=== PATIENT | female | born 1940 | race Caucasian/White ===

== ENCOUNTER 2023-01-17 19:51 | Inpatient (IN) | payer OTHER ==
[2023-01-17 20:04] VITALS: BMI 20.1
[2023-01-17] MEDS ORDERED: ACETAMINOPHEN 1000 MG/100 ML BAG IVPB ONE (20:17)
[2023-01-17] MEDS ORDERED: ACETAMINOPHEN INJECTION 100 ML IVPB ONE (21:12)
[2023-01-17 21:23] LABS: BASO % 0.7 % (0-2.0); EOS % 2.2 % (0-4.5); HEMATOCRIT 41.7 % (32.4-45.2); HEMOGLOBIN 14.2 GM/dL (10.7-15.3); LYMPH % 8.8 % (8-40); MCH 30.1 pg (25.7-33.7); MCHC 34.1 g/dl (32.0-36.0); MEAN CELL VOLUME 88.4 fl (80-96); MONO % 3.9 % (3.8-10.2); NEUT % 84.4 % (42.8-82.8); PLATELET COUNT 172 10^3/uL (134-434); RBC 4.72 M/mm3 (3.60-5.2); RDW 13.8 % (11.6-15.6); WHITE BLOOD COUNT 11.3 K/mm3 (4.0-10.0)
[2023-01-17 21:56] LABS: POTASSIUM 4.3 mmol/L (3.5-5.1)
[2023-01-17 21:59] LABS: ALBUMIN 3.7 g/dl (3.4-5.0); BLOOD UREA NITROGEN 20.3 mg/dL (7-18); CALCIUM 9.9 mg/dL (8.5-10.1)
[2023-01-17 22:03] LABS: CREATININE 0.9 mg/dL (0.55-1.3)
[2023-01-17 22:05] LABS: BILIRUBIN,TOTAL 0.6 mg/dL (0.2-1)
[2023-01-18] MEDS ORDERED: INSULIN (NOVOLOG) ASPART 100 UNITS/ML 10ML VIAL SQ ONE (00:14)
[2023-01-18] MEDS ORDERED: DEXTROSE 5%-0.45% SALINE 1,000 ML IV SCH ×2 (01:00→13:47)
[2023-01-18] MEDS ORDERED: LORazepam 2 MG/ML SDV VIAL IM ONE (01:37)
[2023-01-18 03:15] LABS: EPI CELLS 3 /uL (0-25.1); HYALINE CASTS 1 /uL (0-3.1); INR 1.07 (0.83-1.09); PROTHROMBIN TIME (PATIENT) 12.4 SEC (9.7-13.0); URINE APPEARANCE CLOUDY; URINE BACTERIA >9,000 /uL (0-1359); URINE BILIRUBIN NEGATIVE (NEGATIVE); URINE COLOR YELLOW; URINE GLUCOSE (UA) 3+ (NEGATIVE); URINE KETONE 1+ (NEGATIVE); URINE LEUK ESTERASE 2+ (NEGATIVE); URINE NITRITE NEGATIVE (NEGATIVE); URINE PROTEIN 1+ (NEGATIVE); URINE UROBILINOGEN 0.2 mg/dL (0.2-1.0); URINE WBC 786 /uL (0-25.8)
[2023-01-18] MEDS ORDERED: ACETAMINOPHEN 1000 MG/100 ML BAG IVPB PRN ×2 (05:02→13:47)
[2023-01-18 06:45] LABS: BASO % 0.7 % (0-2.0); EOS % 2.9 % (0-4.5); HEMATOCRIT 40.3 % (32.4-45.2); HEMOGLOBIN 13.4 GM/dL (10.7-15.3); LYMPH % 11.8 % (8-40); MCH 29.9 pg (25.7-33.7); MCHC 33.1 g/dl (32.0-36.0); MEAN CELL VOLUME 90.4 fl (80-96); MEAN PLT VOLUME 10.7 fl (7.5-11.1); MONO % 5.3 % (3.8-10.2); NEUT % 79.3 % (42.8-82.8); PLATELET COUNT 151 10^3/uL (134-434); RBC 4.46 M/mm3 (3.60-5.2); RDW 13.8 % (11.6-15.6); WHITE BLOOD COUNT 10.3 K/mm3 (4.0-10.0)
[2023-01-18 07:14] LABS: BLOOD UREA NITROGEN 17.6 mg/dL (7-18); CALCIUM 9.3 mg/dL (8.5-10.1)
[2023-01-18 07:17] LABS: CREATININE 0.6 mg/dL (0.55-1.3)
[2023-01-18 07:52] LABS: URINE RBC 18.8 /uL (0-23.9); YEAST NEGATIVE (NEGATIVE)
[2023-01-18] MEDS ORDERED: amLODIPine BESYLATE 10 MG TABLET (FP) ONE (09:59)
[2023-01-18] MEDS ORDERED: VALSARTAN 80 MG TABLET ONE (09:59)
[2023-01-18] MEDS ORDERED: VALSARTAN 80 MG TABLET PO SCH (10:00)
[2023-01-18] MEDS ORDERED: BRIMONIDINE TARTRATE 0.2% OPHTHALMIC 5 ML BOTTLE OU SCH (10:00)
[2023-01-18] MEDS ORDERED: amLODIPine BESYLATE 10 MG TABLET (FP) PO SCH (10:00)
[2023-01-18] MEDS ORDERED: prednisoLONE ACETATE 1% OPHTH SUSP 5 ML BOTTLE OD SCH (10:00)
[2023-01-18] MEDS ORDERED: INSULIN SLIDING SCALE (NOVOLOG) 1 VIAL SQ SCH (11:00)
[2023-01-18] MEDS ORDERED: PROPOFOL 20 ML ONE (11:51)
[2023-01-18] MEDS ORDERED: ceFAZolin SODIUM 1 GM VIAL ONE (11:51)
[2023-01-18] MEDS ORDERED: ceFAZolin SODIUM 1 GM VIAL IVPB ONE ×2 (12:40)
[2023-01-18] MEDS ORDERED: DEXAMETHASONE SOD PHOSPHATE 4 MG/1 ML VIAL ONE (12:47)
[2023-01-18] MEDS ORDERED: ONDANSETRON 4 MG/2 ML VIAL ONE (12:47)
[2023-01-18] MEDS ORDERED: ONDANSETRON 4 MG/2 ML VIAL IVPUSH PRN ×2 (13:26→13:47)
[2023-01-18] MEDS ORDERED: SODIUM CHLORIDE 1,000 ML IV SCH (13:45)
[2023-01-18] MEDS: INSULIN SLIDING SCALE (NOVOLOG) 1 VIAL SQ SCH ×2 (16:15→22:55)
[2023-01-18] MEDS: SODIUM CHLORIDE 1,000 ML IV SCH ×2 (17:50→18:17)
[2023-01-18] MEDS: prednisoLONE ACETATE 1% OPHTH SUSP 5 ML BOTTLE OD SCH ×3 (18:13→23:00)
[2023-01-18] MEDS ORDERED: CEFAZOLIN SODIUM 2 GM in DEXTROSE 5%-WATER 100 ML IVPB SCH (21:00)
[2023-01-18] MEDS ORDERED: LATANOPROST 0.005% OPHTH SOLN 2.5ML BOTTLE OU SCH (22:00)
[2023-01-18] MEDS: CEFAZOLIN SODIUM 2 GM in DEXTROSE 5%-WATER 100 ML IVPB SCH (22:51)
[2023-01-18] MEDS: BRIMONIDINE TARTRATE 0.2% OPHTHALMIC 5 ML BOTTLE OU SCH (23:00)
[2023-01-18] MEDS: LATANOPROST 0.005% OPHTH SOLN 2.5ML BOTTLE OU SCH (23:01)
[2023-01-19] MEDS: CEFAZOLIN SODIUM 2 GM in DEXTROSE 5%-WATER 100 ML IVPB SCH (05:36)
[2023-01-19] MEDS: INSULIN SLIDING SCALE (NOVOLOG) 1 VIAL SQ SCH ×4 (06:05→21:28)
[2023-01-19 06:47] LABS: HEMATOCRIT 34.7 % (32.4-45.2); HEMOGLOBIN 11.5 GM/dL (10.7-15.3); MCH 30.1 pg (25.7-33.7); MCHC 33.2 g/dl (32.0-36.0); MEAN CELL VOLUME 90.9 fl (80-96); MEAN PLT VOLUME 11.3 fl (7.5-11.1); PLATELET COUNT 168 10^3/uL (134-434); RBC 3.82 M/mm3 (3.60-5.2); RDW 13.5 % (11.6-15.6)
[2023-01-19 07:07] LABS: POTASSIUM 4.6 mmol/L (3.5-5.1)
[2023-01-19 07:08] LABS: CALCIUM 8.8 mg/dL (8.5-10.1)
[2023-01-19 07:09] LABS: BLOOD UREA NITROGEN 25.9 mg/dL (7-18)
[2023-01-19] MEDS ORDERED: ASPIRIN 325 MG TABLET PO SCH (08:00)
[2023-01-19] MEDS: ASPIRIN 325 MG TABLET PO SCH ×2 (09:54→11:16)
[2023-01-19] MEDS: amLODIPine BESYLATE 10 MG TABLET (FP) PO SCH ×2 (09:54→11:17)
[2023-01-19] MEDS: PANTOPRAZOLE 40 MG TABLET PO SCH ×2 (09:54→11:17)
[2023-01-19] MEDS: MULTIVITAMINS (DAILY MVI) TABLET (FP) PO SCH ×2 (09:54→11:17)
[2023-01-19] MEDS: VALSARTAN 80 MG TABLET PO SCH ×2 (09:54→11:17)
[2023-01-19] MEDS: prednisoLONE ACETATE 1% OPHTH SUSP 5 ML BOTTLE OD SCH ×5 (09:56→21:29)
[2023-01-19] MEDS: BRIMONIDINE TARTRATE 0.2% OPHTHALMIC 5 ML BOTTLE OU SCH ×3 (09:56→21:29)
[2023-01-19] MEDS ORDERED: MULTIVITAMINS (DAILY MVI) TABLET (FP) PO SCH (10:00)
[2023-01-19] MEDS ORDERED: PANTOPRAZOLE 40 MG TABLET PO SCH (10:00)
[2023-01-19] MEDS ORDERED: LORazepam 2 MG/ML SDV VIAL IVPUSH ONE (13:45)
[2023-01-19] MEDS: SODIUM CHLORIDE 1,000 ML IV SCH (18:57)
[2023-01-19] MEDS: QUEtiapine FUMARATE 25 MG TABLET PO SCH (21:27)
[2023-01-19] MEDS: LATANOPROST 0.005% OPHTH SOLN 2.5ML BOTTLE OU SCH (21:28)
[2023-01-20] MEDS ORDERED: ACETAMINOPHEN 1000 MG/100 ML BAG IVPB ONE (05:57)
[2023-01-20] MEDS: INSULIN SLIDING SCALE (NOVOLOG) 1 VIAL SQ SCH ×4 (06:24→21:32)
[2023-01-20 07:35] LABS: HEMATOCRIT 30.1 % (32.4-45.2); MCH 30.2 pg (25.7-33.7); MCHC 33.3 g/dl (32.0-36.0); MEAN CELL VOLUME 90.7 fl (80-96); PLATELET COUNT 157 10^3/uL (134-434); RBC 3.32 M/mm3 (3.60-5.2); RDW 13.7 % (11.6-15.6); WHITE BLOOD COUNT 8.6 K/mm3 (4.0-10.0)
[2023-01-20] MEDS: ASPIRIN 325 MG TABLET PO SCH (08:10)
[2023-01-20] MEDS: MULTIVITAMINS (DAILY MVI) TABLET (FP) PO SCH ×2 (10:09→10:22)
[2023-01-20] MEDS: amLODIPine BESYLATE 10 MG TABLET (FP) PO SCH ×2 (10:09→10:21)
[2023-01-20] MEDS: VALSARTAN 80 MG TABLET PO SCH ×2 (10:09→10:20)
[2023-01-20] MEDS: PANTOPRAZOLE 40 MG TABLET PO SCH ×2 (10:09→10:22)
[2023-01-20] MEDS: BRIMONIDINE TARTRATE 0.2% OPHTHALMIC 5 ML BOTTLE OU SCH ×2 (10:10→21:31)
[2023-01-20] MEDS: prednisoLONE ACETATE 1% OPHTH SUSP 5 ML BOTTLE OD SCH ×4 (10:11→21:32)
[2023-01-20] MEDS ORDERED: ACETAMINOPHEN 325 MG TABLET (FP) PO ONE (16:15)
[2023-01-20] MEDS ORDERED: ACETAMINOPHEN 325 MG TABLET (FP) PO PRN (17:16)
[2023-01-20] MEDS: SODIUM CHLORIDE 1,000 ML IV SCH (17:17)
[2023-01-20] MEDS: QUEtiapine FUMARATE 25 MG TABLET PO SCH (21:31)
[2023-01-20] MEDS: LATANOPROST 0.005% OPHTH SOLN 2.5ML BOTTLE OU SCH (21:31)
[2023-01-20] MEDS: HEPARIN NA (PORCINE) 5,000 UNITS/ML 1ML VIAL SQ SCH (21:31)
[2023-01-21] MEDS: INSULIN SLIDING SCALE (NOVOLOG) 1 VIAL SQ SCH ×3 (06:38→16:48)
[2023-01-21 07:07] VITALS: RESP 18
[2023-01-21] MEDS: ASPIRIN 325 MG TABLET PO SCH (08:14)
[2023-01-21] MEDS: VALSARTAN 80 MG TABLET PO SCH (09:34)
[2023-01-21] MEDS: PANTOPRAZOLE 40 MG TABLET PO SCH (09:34)
[2023-01-21] MEDS: MULTIVITAMINS (DAILY MVI) TABLET (FP) PO SCH (09:34)
[2023-01-21] MEDS: HEPARIN NA (PORCINE) 5,000 UNITS/ML 1ML VIAL SQ SCH (09:35)
[2023-01-21] MEDS: amLODIPine BESYLATE 10 MG TABLET (FP) PO SCH (09:35)
[2023-01-21] MEDS: prednisoLONE ACETATE 1% OPHTH SUSP 5 ML BOTTLE OD SCH ×3 (09:36→17:04)
[2023-01-21] MEDS: BRIMONIDINE TARTRATE 0.2% OPHTHALMIC 5 ML BOTTLE OU SCH (09:36)
[2023-01-21 17:47] VITALS: BP 122/59; PULSE 94; TEMP 98.9
== END 2023-01-21 18:04 | DRG 956 ==
LOC: JER 19:51 → JERBED 20:36 → J4S 01-18 17:55
PROVIDERS: ADMIT Internal Medicine; ATTEND Family Medicine
PROC: 0SRR0JA Replacement of Right Hip Joint, Femoral Surface with Synthetic Substitute, Uncemented, Open Approach (ICD-10-PCS; principal; 2023-01-18 12:00)
DX: S72.001A Fracture of unspecified part of neck of right femur, initial encounter for closed fracture (principal); S32.10XA Unspecified fracture of sacrum, initial encounter for closed fracture; N39.0 Urinary tract infection, site not specified; I10 Essential (primary) hypertension; F03.90 Unspecified dementia, unspecified severity, without behavioral disturbance, psychotic disturbance, mood disturbance, and anxiety; E11.9 Type 2 diabetes mellitus without complications; I44.0 Atrioventricular block, first degree; I45.10 Unspecified right bundle-branch block; W19.XXXA Unspecified fall, initial encounter; Y93.89 Activity, other specified; Y92.129 Unspecified place in nursing home as the place of occurrence of the external cause; Y99.8 Other external cause status; I25.10 Atherosclerotic heart disease of native coronary artery without angina pectoris; K21.9 Gastro-esophageal reflux disease without esophagitis; H40.9 Unspecified glaucoma; Z79.4 Long term (current) use of insulin; R55 Syncope and collapse; E11.65 Type 2 diabetes mellitus with hyperglycemia; Z88.0 Allergy status to penicillin
CPT/HCPCS: 36415; 70450-TC; 71045-TC-FY; 72125-TC; 72170-TC-FY; 72192-TC; 73502-TC-RT-FY; 73552-TC-RT-FY; 73590-TC-RT-FY; 80048; 80053; 81003; 82962; 83036; 83735; 84484; 85025; 85027; 85610; 86850; 86900; 86901; 87086; 87186; 88305-TC; 88311-TC; 93005; 93010; 94760; 97116-GP; 97161-GP; 99285-25; C1776; J1644

== ENCOUNTER 2024-03-20 17:55 | Observation (INO) | payer OTHER ==
[2024-03-20 18:57] VITALS: BMI 21.9
[2024-03-20 22:15] LABS: POTASSIUM 4.1 mmol/L (3.5-5.1)
[2024-03-20 22:16] LABS: BLOOD UREA NITROGEN 5.3 mg/dL (7-18)
[2024-03-20] MEDS ORDERED: ACETAMINOPHEN INJECTION 100 ML ONE (22:16)
[2024-03-20 22:17] LABS: ALBUMIN 2.7 g/dl (3.4-5.0)
[2024-03-20 22:19] LABS: CREATININE 0.4 mg/dL (0.55-1.3)
[2024-03-20 22:21] LABS: BILIRUBIN,TOTAL 0.1 mg/dL (0.2-1); TOT PROT 6.7 g/dl (6.4-8.2)
[2024-03-20 22:51] LABS: BASO % 0.9 % (0-2.0); EOS % 5.1 % (0-4.5); HEMATOCRIT 37.4 % (32.4-45.2); HEMOGLOBIN 12.4 GM/dL (10.7-15.3); LYMPH % 24.4 % (8-40); MCH 29.1 pg (25.7-33.7); MCHC 33.1 g/dl (32.0-36.0); MEAN CELL VOLUME 87.9 fl (80-96); MEAN PLT VOLUME 8.4 fl (7.5-11.1); MONO % 7.3 % (3.8-10.2); NEUT % 62.3 % (42.8-82.8); PLATELET COUNT 310 10^3/uL (134-434); RBC 4.26 M/mm3 (3.60-5.2); RDW 14.5 % (11.6-15.6); WHITE BLOOD COUNT 8.3 K/mm3 (4.0-10.0)
[2024-03-20] MEDS: ACETAMINOPHEN 1000 MG/100 ML BAG IVPB ONE (22:51)
[2024-03-21 01:59] LABS: EPI CELLS 13 /uL (0-25.1); HYALINE CASTS 1 /uL (0-3.1); PH,URINE 6.5 (5.0-8.0); URINE APPEARANCE CLEAR; URINE BACTERIA 26 /uL (0-1359); URINE BILIRUBIN NEGATIVE (NEGATIVE); URINE COLOR YELLOW; URINE GLUCOSE (UA) NEGATIVE (NEGATIVE); URINE KETONE NEGATIVE (NEGATIVE); URINE LEUK ESTERASE 2+ (NEGATIVE); URINE NITRITE NEGATIVE (NEGATIVE); URINE PROTEIN NEGATIVE (NEGATIVE); URINE RBC 18 /uL (0-23.9); URINE UROBILINOGEN 0.2 mg/dL (0.2-1.0); URINE WBC 19 /uL (0-25.8)
[2024-03-21] MEDS: INSULIN (LEVEMIR) 100 UNITS/ML UNITS SQ SCH (04:54)
[2024-03-21] MEDS: MEROPENEM 1 GM in DEXTROSE 5%-WATER 100 ML IVPB SCH (06:02)
[2024-03-21 07:21] LABS: HEMOGLOBIN 12.1 GM/dL (10.7-15.3); MCH 28.9 pg (25.7-33.7); MCHC 32.7 g/dl (32.0-36.0); MEAN CELL VOLUME 88.5 fl (80-96); MEAN PLT VOLUME 9.2 fl (7.5-11.1); PLATELET COUNT 359 10^3/uL (134-434); RBC 4.18 M/mm3 (3.60-5.2); RDW 14.4 % (11.6-15.6); WHITE BLOOD COUNT 8.2 K/mm3 (4.0-10.0)
[2024-03-21 07:40] LABS: CHLORIDE 101 mmol/L (98-107); POTASSIUM 4.4 mmol/L (3.5-5.1); SODIUM 134 mmol/L (136-145)
[2024-03-21 07:44] LABS: CALCIUM 9.5 mg/dL (8.5-10.1)
[2024-03-21 07:45] LABS: ALBUMIN 2.6 g/dl (3.4-5.0); ANION GAP 6 mmol/L (4-13); BLOOD UREA NITROGEN 5.4 mg/dL (7-18); CO2 28 mmol/L (21-32); GLUCOSE,RANDOM 157 mg/dL (74-106)
[2024-03-21 07:47] LABS: BILIRUBIN,TOTAL 0.3 mg/dL (0.2-1)
[2024-03-21 07:48] LABS: CREATININE 0.4 mg/dL (0.55-1.3); SGOT/AST 11 U/L (15-37); SGPT/ALT < 6 U/L (13-61)
[2024-03-21 07:49] LABS: TOT PROT 6.8 g/dl (6.4-8.2)
[2024-03-21 07:50] LABS: PHOSPHOROUS 3.3 mg/dL (2.5-4.9)
[2024-03-21 07:51] LABS: ALK PHOS 190 U/L (45-117)
[2024-03-21] MEDS: CEFTRIAXONE 1 GM in DEXTROSE 5%-WATER - 50 ML IVPB SCH (10:51)
[2024-03-21] MEDS ORDERED: MAG HYDROX/AL HYDROX/SIMETH 30 ML UNIT-DOSE CUP PO PRN (11:16)
[2024-03-21] MEDS ORDERED: ASPIRIN 81 MG CHEWABLE TABLETS ONE (12:25)
[2024-03-21] MEDS ORDERED: MEROPENEM 1 GM in DEXTROSE 5%-WATER 100 ML IVPB SCH ×2 (13:15→15:15)
[2024-03-21] MEDS: amLODIPine BESYLATE 10 MG TABLET (FP) PO SCH (13:16)
[2024-03-21] MEDS: VALSARTAN 80 MG TABLET PO SCH (13:16)
[2024-03-21] MEDS: ASPIRIN COATED 81 MG TABLET.EC PO SCH (13:27)
[2024-03-21] MEDS ORDERED: INSULIN ASPART SLIDING SCALE (NOVOLOG) 1 VIAL SQ ONE (16:09)
[2024-03-21] MEDS: prednisoLONE ACETATE 1% OPHTH SUSP 5 ML BOTTLE OD SCH (16:10)
[2024-03-21] MEDS: BRIMONIDINE TARTRATE 0.2% OPHTHALMIC 5 ML BOTTLE OU SCH (16:11)
[2024-03-21] MEDS ORDERED: MEROPENEM 1 GM VIAL (RESTRICTED TO ID) IVPB ONE (18:56)
[2024-03-21] MEDS ORDERED: POLYETHYLENE GLYCOL (HEALTHYLAX) 3350 17 GM PACKET ONE (21:40)
[2024-03-21] MEDS ORDERED: SENNOSIDES 8.6MG TABLET (FP) PO ONE (21:40)
[2024-03-21] MEDS: POLYETHYLENE GLYCOL (HEALTHYLAX) 3350 17 GM PACKET PO SCH (21:58)
[2024-03-21] MEDS: LATANOPROST 0.005% OPHTH SOLN 2.5ML BOTTLE OU SCH (21:58)
[2024-03-21] MEDS: SENNOSIDES 8.8 MG/5 ML SYRUP PO SCH (21:58)
[2024-03-21] MEDS: DORZOLAMIDE 2% HCL OPHTHALMIC SOLUTION 10 ML BOTTLE OU SCH (21:58)
[2024-03-21] MEDS ORDERED: SENNOSIDES 8.8 MG/5 ML SYRUP PO SCH (22:00)
[2024-03-22] MEDS ORDERED: MEROPENEM 1 GM VIAL (RESTRICTED TO ID) IVPB ONE ×3 (02:11→18:09)
[2024-03-22] MEDS ORDERED: INSULIN (LEVEMIR) 100 UNITS/ML UNITS SQ ONE ×2 (08:23→17:36)
[2024-03-22] MEDS ORDERED: POLYETHYLENE GLYCOL (HEALTHYLAX) 3350 17 GM PACKET ONE ×2 (08:50→22:00)
[2024-03-22] MEDS ORDERED: PANTOPRAZOLE 20 MG TABLET PO ONE (08:50)
[2024-03-22] MEDS ORDERED: ASPIRIN COATED 81 MG TABLET.EC ONE (08:50)
[2024-03-22] MEDS ORDERED: VALSARTAN 80 MG TABLET ONE (08:51)
[2024-03-22] MEDS ORDERED: amLODIPine BESYLATE 10 MG TABLET (FP) ONE (08:51)
[2024-03-22] MEDS ORDERED: SENNOSIDES 8.6MG TABLET (FP) PO ONE ×2 (08:51→22:00)
[2024-03-22] MEDS ORDERED: ENOXAPARIN NA (PORCINE) 40 MG/0.4 ML DISP.SYRIN SQ ONE (08:51)
[2024-03-22] MEDS: SENNOSIDES 8.6MG TABLET (FP) PO SCH (09:20)
[2024-03-22] MEDS: ENOXAPARIN NA (PORCINE) 40 MG/0.4 ML DISP.SYRIN SQ SCH (09:20)
[2024-03-22] MEDS: PANTOPRAZOLE 20 MG TABLET PO SCH (09:20)
[2024-03-22] MEDS: INSULIN ASPART SLIDING SCALE (NOVOLOG) 1 VIAL SQ SCH (17:34)
[2024-03-22] MEDS ORDERED: INSULIN ASPART SLIDING SCALE (NOVOLOG) 1 VIAL SQ ONE (17:36)
[2024-03-22] MEDS ORDERED: TAMSULOSIN HCL 0.4 MG CAP ONE (22:01)
[2024-03-22] MEDS: TAMSULOSIN HCL 0.4 MG CAP PO SCH (22:08)
[2024-03-23] MEDS ORDERED: MEROPENEM 1 GM VIAL (RESTRICTED TO ID) IVPB ONE (02:52)
[2024-03-23 10:37] LABS: BASO % 1.3 % (0-2.0); EOS % 2.7 % (0-4.5); HEMATOCRIT 36.6 % (32.4-45.2); LYMPH % 23.1 % (8-40); MCH 29.3 pg (25.7-33.7); MCHC 32.9 g/dl (32.0-36.0); MEAN PLT VOLUME 8.2 fl (7.5-11.1); MONO % 6.5 % (3.8-10.2); NEUT % 66.4 % (42.8-82.8); PLATELET COUNT 485 10^3/uL (134-434); RBC 4.11 M/mm3 (3.60-5.2); RDW 14.2 % (11.6-15.6); WHITE BLOOD COUNT 7.6 K/mm3 (4.0-10.0)
[2024-03-23 10:50] LABS: POTASSIUM 4.7 mmol/L (3.5-5.1)
[2024-03-23 10:52] LABS: CALCIUM 9.7 mg/dL (8.5-10.1)
[2024-03-23 10:53] LABS: ALBUMIN 2.6 g/dl (3.4-5.0); MAGNESIUM 2.2 mg/dL (1.8-2.4)
[2024-03-23 10:54] LABS: BLOOD UREA NITROGEN 11.7 mg/dL (7-18)
[2024-03-23 10:56] LABS: CREATININE 0.5 mg/dL (0.55-1.3)
[2024-03-23 10:58] LABS: BILIRUBIN,TOTAL 0.3 mg/dL (0.2-1); TOT PROT 6.4 g/dl (6.4-8.2)
[2024-03-24 10:55] LABS: BASO % 1.5 % (0-2.0); EOS % 4.3 % (0-4.5); HEMATOCRIT 35.2 % (32.4-45.2); HEMOGLOBIN 11.8 GM/dL (10.7-15.3); MCH 29.4 pg (25.7-33.7); MCHC 33.6 g/dl (32.0-36.0); MEAN CELL VOLUME 87.5 fl (80-96); MEAN PLT VOLUME 7.8 fl (7.5-11.1); MONO % 7.7 % (3.8-10.2); NEUT % 66.5 % (42.8-82.8); PLATELET COUNT 522 10^3/uL (134-434); RBC 4.02 M/mm3 (3.60-5.2); RDW 14.8 % (11.6-15.6); WHITE BLOOD COUNT 9.3 K/mm3 (4.0-10.0)
[2024-03-24 11:17] LABS: POTASSIUM 4.7 mmol/L (3.5-5.1)
[2024-03-24 11:18] LABS: CALCIUM 9.6 mg/dL (8.5-10.1)
[2024-03-24 11:22] LABS: ALBUMIN 2.5 g/dl (3.4-5.0); MAGNESIUM 2.3 mg/dL (1.8-2.4)
[2024-03-24 11:24] LABS: BLOOD UREA NITROGEN 19.6 mg/dL (7-18)
[2024-03-24 11:25] LABS: CREATININE 0.7 mg/dL (0.55-1.3)
[2024-03-24 11:27] LABS: TOT PROT 6.3 g/dl (6.4-8.2)
[2024-03-24 11:29] LABS: BILIRUBIN,TOTAL 0.3 mg/dL (0.2-1)
[2024-03-24] MEDS: POLYETHYLENE GLYCOL (HEALTHYLAX) 3350 17 GM PACKET PO SCH (13:28)
[2024-03-25 09:52] LABS: BASO % 1.2 % (0-2.0); EOS % 3.1 % (0-4.5); HEMATOCRIT 37.4 % (32.4-45.2); HEMOGLOBIN 12.5 GM/dL (10.7-15.3); LYMPH % 20.7 % (8-40); MCH 29.4 pg (25.7-33.7); MCHC 33.5 g/dl (32.0-36.0); MEAN CELL VOLUME 87.7 fl (80-96); MEAN PLT VOLUME 8.1 fl (7.5-11.1); MONO % 7.4 % (3.8-10.2); NEUT % 67.6 % (42.8-82.8); PLATELET COUNT 521 10^3/uL (134-434); RBC 4.26 M/mm3 (3.60-5.2); RDW 14.5 % (11.6-15.6); WHITE BLOOD COUNT 9.4 K/mm3 (4.0-10.0)
[2024-03-25 10:29] LABS: POTASSIUM 5.1 mmol/L (3.5-5.1)
[2024-03-25 10:34] LABS: CALCIUM 9.9 mg/dL (8.5-10.1)
[2024-03-25 10:35] LABS: ALBUMIN 2.7 g/dl (3.4-5.0); BLOOD UREA NITROGEN 22.1 mg/dL (7-18); MAGNESIUM 2.4 mg/dL (1.8-2.4)
[2024-03-25 10:39] LABS: CREATININE 0.6 mg/dL (0.55-1.3)
[2024-03-25 10:40] LABS: BILIRUBIN,TOTAL 0.2 mg/dL (0.2-1); TOT PROT 6.7 g/dl (6.4-8.2)
[2024-03-25] MEDS: INSULIN (LEVEMIR) 100 UNITS/ML UNITS SQ ONE (17:32)
[2024-03-25 20:53] VITALS: RESP 18
[2024-03-26 06:30] VITALS: BP 145/73; PULSE 79; TEMP 97.7
[2024-03-26 15:11] LABS: TOTAL PROTEIN, URINE 104.6 mg/dL (Not Estab.)
== END 2024-03-26 10:20 ==
LOC: JER 17:55 → JERBED 03-21 02:01 → J6W 03-23 04:01
PROVIDERS: ADMIT Internal Medicine
PROC: 3E033NZ Introduction of Analgesics, Hypnotics, Sedatives into Peripheral Vein, Percutaneous Approach (ICD-10-PCS; principal; 2024-03-21)
PROC: 3E03329 Introduction of Other Anti-infective into Peripheral Vein, Percutaneous Approach (ICD-10-PCS; 2024-03-21)
PROC: 3E023GC Introduction of Other Therapeutic Substance into Muscle, Percutaneous Approach (ICD-10-PCS; 2024-03-21)
PROC: 3E013VG Introduction of Insulin into Subcutaneous Tissue, Percutaneous Approach (ICD-10-PCS; 2024-03-21)
PROC: 0T9B70Z Drainage of Bladder with Drainage Device, Via Natural or Artificial Opening (ICD-10-PCS; 2024-03-21)
DX: K52.89 Other specified noninfective gastroenteritis and colitis (principal); K59.09 Other constipation; N39.0 Urinary tract infection, site not specified; R33.9 Retention of urine, unspecified; F32.A Depression, unspecified; I10 Essential (primary) hypertension; E78.5 Hyperlipidemia, unspecified; J90 Pleural effusion, not elsewhere classified; I25.10 Atherosclerotic heart disease of native coronary artery without angina pectoris; S72.009A Fracture of unspecified part of neck of unspecified femur, initial encounter for closed fracture; X58.XXXA Exposure to other specified factors, initial encounter; R10.9 Unspecified abdominal pain; E11.9 Type 2 diabetes mellitus without complications; Z87.440 Personal history of urinary (tract) infections; Z29.89 Encounter for other specified prophylactic measures; F39 Unspecified mood [affective] disorder; G89.29 Other chronic pain; Z88.0 Allergy status to penicillin
CPT/HCPCS: 36415; 51702; 71045-TC-FY; 74177-TC; 80053; 81003; 82962; 83690; 83735; 84100; 84155; 84156; 84157; 84165; 84484; 85025; 85027; 87086; 87635; 93005; 93010; 94761; 96365; 96372; 96375; 97116-GP; 97161-GP; 99285-25; G0378; J0131; Q9967

== ENCOUNTER 2024-04-25 16:22 | Inpatient (IN) | payer OTHER ==
[2024-04-25 16:54] VITALS: BMI 19.2
[2024-04-25 19:53] LABS: HEMATOCRIT 35.3 % (32.4-45.2); HEMOGLOBIN 11.6 GM/dL (10.7-15.3); LYMPH % 12.8 % (8-40); MCH 29.2 pg (25.7-33.7); MCHC 32.9 g/dl (32.0-36.0); MEAN CELL VOLUME 88.8 fl (80-96); MEAN PLT VOLUME 9.1 fl (7.5-11.1); MONO % 7.1 % (3.8-10.2); NEUT % 78.1 % (42.8-82.8); PLATELET COUNT 400 10^3/uL (134-434); RBC 3.97 M/mm3 (3.60-5.2); RDW 15.8 % (11.6-15.6); WHITE BLOOD COUNT 11.6 K/mm3 (4.0-10.0)
[2024-04-25 20:08] LABS: EPI CELLS >36 /uL (0-25.1); HYALINE CASTS 21 /uL (0-3.1); URINE APPEARANCE TURBID; URINE BILIRUBIN NEGATIVE (NEGATIVE); URINE COLOR YELLOW; URINE GLUCOSE (UA) 2+ (NEGATIVE); URINE KETONE NEGATIVE (NEGATIVE); URINE LEUK ESTERASE TRACE (NEGATIVE); URINE NITRITE NEGATIVE (NEGATIVE); URINE PROTEIN 1+ (NEGATIVE); URINE UROBILINOGEN 0.2 mg/dL (0.2-1.0); URINE WBC 887 /uL (0-25.8)
[2024-04-25 20:13] LABS: POTASSIUM 4.6 mmol/L (3.5-5.1)
[2024-04-25 20:15] LABS: CALCIUM 9.1 mg/dL (8.5-10.1)
[2024-04-25 20:16] LABS: ALBUMIN 2.5 g/dl (3.4-5.0); BLOOD UREA NITROGEN 28.4 mg/dL (7-18)
[2024-04-25 20:19] LABS: CREATININE 0.8 mg/dL (0.55-1.3)
[2024-04-25 20:20] LABS: BILIRUBIN,TOTAL 0.3 mg/dL (0.2-1); TOT PROT 7.3 g/dl (6.4-8.2)
[2024-04-25 20:36] LABS: URINE BACTERIA >9000 /uL (0-1359); URINE RBC 5 /uL (0-23.9)
[2024-04-25] MEDS ORDERED: CEFTRIAXONE 1 GM/50 ML BAG ONE (20:52)
[2024-04-25] MEDS: CEFTRIAXONE 1 GM in DEXTROSE 5%-WATER - 100 ML IVPB ONE (21:00)
[2024-04-26] MEDS ORDERED: MAGNESIUM CITRATE 300 ML BOTTLE PO PRN (01:33)
[2024-04-26] MEDS ORDERED: MAG HYDROX/AL HYDROX/SIMETH 30 ML UNIT-DOSE CUP PO PRN (01:44)
[2024-04-26] MEDS: MINERAL OIL ENEMA 133 ML ENEMA RC ONE ×3 (03:03→11:59)
[2024-04-26] MEDS ORDERED: MAGNESIUM CITRATE 300 ML BOTTLE ONE (03:33)
[2024-04-26] MEDS: MAGNESIUM CITRATE 300 ML BOTTLE PO ONE (03:46)
[2024-04-26] MEDS ORDERED: TAMSULOSIN HCL 0.4 MG CAP PO SCH (08:30)
[2024-04-26] MEDS ORDERED: POLYETHYLENE GLYCOL (HEALTHYLAX) 3350 17 GM PACKET PO SCH (10:00)
[2024-04-26 10:25] LABS: HEMATOCRIT 32.2 % (32.4-45.2); HEMOGLOBIN 10.7 GM/dL (10.7-15.3); MCH 29.4 pg (25.7-33.7); MCHC 33.2 g/dl (32.0-36.0); MEAN CELL VOLUME 88.8 fl (80-96); MEAN PLT VOLUME 9.2 fl (7.5-11.1); PLATELET COUNT 356 10^3/uL (134-434); RBC 3.62 M/mm3 (3.60-5.2); RDW 15.6 % (11.6-15.6); WHITE BLOOD COUNT 11.7 K/mm3 (4.0-10.0)
[2024-04-26 11:32] LABS: POTASSIUM 3.8 mmol/L (3.5-5.1)
[2024-04-26 11:35] LABS: ALBUMIN 2.3 g/dl (3.4-5.0); BLOOD UREA NITROGEN 29.2 mg/dL (7-18); CALCIUM 8.1 mg/dL (8.5-10.1); MAGNESIUM 2.1 mg/dL (1.8-2.4)
[2024-04-26 11:38] LABS: CREATININE 0.8 mg/dL (0.55-1.3); PHOSPHOROUS 5.2 mg/dL (2.5-4.9)
[2024-04-26 11:40] LABS: BILIRUBIN,TOTAL 0.4 mg/dL (0.2-1); TOT PROT 6.6 g/dl (6.4-8.2)
[2024-04-26 11:43] LABS: N-TERMINAL BNP 2805.1 pg/ml (5-450)
[2024-04-26] MEDS: INSULIN ASPART SLIDING SCALE (NOVOLOG) 1 VIAL SQ SCH (11:55)
[2024-04-26] MEDS: PANTOPRAZOLE 20 MG TABLET PO SCH (11:58)
[2024-04-26] MEDS: INSULIN (LEVEMIR) 100 UNITS/ML UNITS SQ SCH (11:58)
[2024-04-26] MEDS: VALSARTAN 80 MG TABLET PO SCH (12:00)
[2024-04-26] MEDS: BRIMONIDINE TARTRATE 0.2% OPHTHALMIC 5 ML BOTTLE OU SCH (12:00)
[2024-04-26] MEDS: ENOXAPARIN NA (PORCINE) 40 MG/0.4 ML DISP.SYRIN SQ SCH (12:01)
[2024-04-26] MEDS: ASPIRIN COATED 81 MG TABLET.EC PO SCH (12:01)
[2024-04-26] MEDS: amLODIPine BESYLATE 10 MG TABLET (FP) PO SCH (14:24)
[2024-04-26] MEDS: POLYETHYLENE GLYCOL (HEALTHYLAX) 3350 17 GM PACKET PO SCH (14:24)
[2024-04-26] MEDS: prednisoLONE ACETATE 1% OPHTH SUSP 5 ML BOTTLE OD SCH (17:00)
[2024-04-26] MEDS: DORZOLAMIDE 2% HCL OPHTHALMIC SOLUTION 10 ML BOTTLE OU SCH (17:01)
[2024-04-26] MEDS: DEXTROSE 5%-0.45% SALINE 1,000 ML IV SCH (19:50)
[2024-04-26] MEDS: CEFTRIAXONE 1 G/50 ML PREMIX 50 ML IVPB SCH (23:40)
[2024-04-26] MEDS: LATANOPROST 0.005% OPHTH SOLN 2.5ML BOTTLE OU SCH (23:45)
[2024-04-27] MEDS: SENNOSIDES 8.6MG TABLET (FP) PO SCH (03:44)
[2024-04-27] MEDS ORDERED: INSULIN ASPART SLIDING SCALE (NOVOLOG) 1 VIAL SQ ONE (07:51)
[2024-04-27 09:17] LABS: BASO % 1.1 % (0-2.0); EOS % 1.5 % (0-4.5); HEMATOCRIT 30.7 % (32.4-45.2); HEMOGLOBIN 10.2 GM/dL (10.7-15.3); LYMPH % 18.3 % (8-40); MCH 29.6 pg (25.7-33.7); MCHC 33.3 g/dl (32.0-36.0); MEAN CELL VOLUME 88.8 fl (80-96); MEAN PLT VOLUME 8.7 fl (7.5-11.1); MONO % 8.5 % (3.8-10.2); NEUT % 70.6 % (42.8-82.8); PLATELET COUNT 314 10^3/uL (134-434); RBC 3.46 M/mm3 (3.60-5.2); RDW 15.3 % (11.6-15.6); WHITE BLOOD COUNT 10.4 K/mm3 (4.0-10.0)
[2024-04-27 09:20] LABS: POTASSIUM 3.2 mmol/L (3.5-5.1)
[2024-04-27 09:27] LABS: ALBUMIN 2.2 g/dl (3.4-5.0); BLOOD UREA NITROGEN 41.2 mg/dL (7-18); CALCIUM 8.2 mg/dL (8.5-10.1); MAGNESIUM 2.3 mg/dL (1.8-2.4)
[2024-04-27 09:29] LABS: BILIRUBIN,TOTAL 0.2 mg/dL (0.2-1); TOT PROT 6.2 g/dl (6.4-8.2)
[2024-04-27 09:31] LABS: CREATININE 1.2 mg/dL (0.55-1.3)
[2024-04-27] MEDS: KCL 10 MEQ IVPB 10 MEQ/100 ML INFUS.BAG IVPB SCH (14:25)
[2024-04-27] MEDS: POTASSIUM CHLORIDE 10 MEQ in DEXTROSE 5%-WATER - 1,000 ML IV SCH ×2 (15:29→15:37)
[2024-04-27] MEDS: DEXTROSE 5%-WATER - 1,000 ML with POTASSIUM CHLORIDE 10 MEQ IV SCH (15:37)
[2024-04-27] MEDS: BISACODYL 10 MG SUPP.RECT PR PRN (15:48)
[2024-04-27 17:09] LABS: FREE KAPPA,SERUM 108.9 mg/L (3.3-19.4)
[2024-04-27] MEDS: DEXTROSE 5%-0.45% SALINE 1,000 ML IV SCH (20:42)
[2024-04-28] MEDS: ACETAMINOPHEN 1000 MG/100 ML BAG IVPB PRN (01:53)
[2024-04-28 08:22] LABS: EOS % 3.7 % (0-4.5); HEMOGLOBIN 10.8 GM/dL (10.7-15.3); MCH 28.8 pg (25.7-33.7); MCHC 32.6 g/dl (32.0-36.0); MEAN CELL VOLUME 88.5 fl (80-96); MEAN PLT VOLUME 8.8 fl (7.5-11.1); MONO % 7.9 % (3.8-10.2); NEUT % 70.4 % (42.8-82.8); PLATELET COUNT 304 10^3/uL (134-434); RBC 3.73 M/mm3 (3.60-5.2); RDW 15.3 % (11.6-15.6); WHITE BLOOD COUNT 9.8 K/mm3 (4.0-10.0)
[2024-04-28 08:34] LABS: POTASSIUM 3.6 mmol/L (3.5-5.1)
[2024-04-28 08:37] LABS: ALBUMIN 2.2 g/dl (3.4-5.0); BLOOD UREA NITROGEN 30.9 mg/dL (7-18); CALCIUM 8.6 mg/dL (8.5-10.1); MAGNESIUM 2.1 mg/dL (1.8-2.4)
[2024-04-28 08:42] LABS: BILIRUBIN,TOTAL 0.4 mg/dL (0.2-1); CREATININE 0.9 mg/dL (0.55-1.3); TOT PROT 6.2 g/dl (6.4-8.2)
[2024-04-28] MEDS: amLODIPine BESYLATE 5 MG TABLET (FP) PO SCH (09:48)
[2024-04-28] MEDS: LORazepam 2 MG/ML SDV VIAL IVPUSH ONE (13:23)
[2024-04-28] MEDS ORDERED: ACETAMINOPHEN 1000 MG/100 ML BAG IVPB PRN (13:26)
[2024-04-29 09:48] LABS: EOS % 4.5 % (0-4.5); HEMATOCRIT 33.3 % (32.4-45.2); HEMOGLOBIN 11.1 GM/dL (10.7-15.3); MCH 29.1 pg (25.7-33.7); MCHC 33.5 g/dl (32.0-36.0); MEAN CELL VOLUME 87.1 fl (80-96); MEAN PLT VOLUME 9.1 fl (7.5-11.1); NEUT % 71.5 % (42.8-82.8); PLATELET COUNT 283 10^3/uL (134-434); RBC 3.82 M/mm3 (3.60-5.2); RDW 15.6 % (11.6-15.6)
[2024-04-29 10:00] LABS: POTASSIUM 3.4 mmol/L (3.5-5.1)
[2024-04-29 10:05] LABS: CALCIUM 8.6 mg/dL (8.5-10.1)
[2024-04-29 10:06] LABS: ALBUMIN 2.2 g/dl (3.4-5.0); BLOOD UREA NITROGEN 22.9 mg/dL (7-18)
[2024-04-29 10:10] LABS: BILIRUBIN,TOTAL 0.3 mg/dL (0.2-1); CREATININE 0.8 mg/dL (0.55-1.3)
[2024-04-29] MEDS: KCL 10 MEQ IVPB 10 MEQ/100 ML INFUS.BAG IVPB SCH ×2 (11:40→15:21)
[2024-04-29] MEDS ORDERED: LORazepam 2 MG/ML SDV VIAL IVPUSH PRN (16:28)
[2024-04-29 18:08] LABS: IG A QN SERUM. 1013 mg/dL (64-422)
[2024-04-29] MEDS: MIRTAZAPINE 15 MG TABLET (FP) PO SCH (22:08)
[2024-04-30 09:53] LABS: BASO % 0.9 % (0-2.0); EOS % 2.5 % (0-4.5); HEMOGLOBIN 11.6 GM/dL (10.7-15.3); MCH 29.2 pg (25.7-33.7); MCHC 33.2 g/dl (32.0-36.0); MEAN CELL VOLUME 87.9 fl (80-96); MEAN PLT VOLUME 9.1 fl (7.5-11.1); NEUT % 75.6 % (42.8-82.8); PLATELET COUNT 258 10^3/uL (134-434); RBC 3.98 M/mm3 (3.60-5.2); RDW 15.4 % (11.6-15.6); WHITE BLOOD COUNT 10.7 K/mm3 (4.0-10.0)
[2024-04-30 10:34] LABS: POTASSIUM 4.2 mmol/L (3.5-5.1)
[2024-04-30 10:36] LABS: ALBUMIN 2.2 g/dl (3.4-5.0); BLOOD UREA NITROGEN 19.6 mg/dL (7-18); CALCIUM 9.1 mg/dL (8.5-10.1)
[2024-04-30 10:41] LABS: BILIRUBIN,TOTAL 0.3 mg/dL (0.2-1); TOT PROT 6.1 g/dl (6.4-8.2)
[2024-04-30 10:51] LABS: CREATININE 0.7 mg/dL (0.55-1.3)
[2024-04-30 15:04] VITALS: RESP 18
[2024-04-30] MEDS ORDERED: DEXTROSE 5%-WATER - 1,000 ML IV SCH (17:00)
[2024-04-30 22:48] VITALS: BP 131/75; PULSE 109; TEMP 98.4
[2024-05-01] MEDS ORDERED: CEFTRIAXONE 1 G/50 ML PREMIX 50 ML IVPB SCH (10:00)
== END 2024-05-01 01:00 | DRG 391 ==
LOC: JER 16:22 → JERBED 21:12 → J8W 04-26 05:57
PROVIDERS: ADMIT Internal Medicine; ATTEND Nurse Practitioner Acute Care
DX: K52.89 Other specified noninfective gastroenteritis and colitis (principal); G93.41 Metabolic encephalopathy; R64 Cachexia; Z68.1 Body mass index [BMI] 19.9 or less, adult; E44.0 Moderate protein-calorie malnutrition; C78.7 Secondary malignant neoplasm of liver and intrahepatic bile duct; E87.0 Hyperosmolality and hypernatremia; J98.11 Atelectasis; C79.51 Secondary malignant neoplasm of bone; J90 Pleural effusion, not elsewhere classified; N39.0 Urinary tract infection, site not specified; I25.10 Atherosclerotic heart disease of native coronary artery without angina pectoris; E78.00 Pure hypercholesterolemia, unspecified; K21.9 Gastro-esophageal reflux disease without esophagitis; E11.9 Type 2 diabetes mellitus without complications; J44.9 Chronic obstructive pulmonary disease, unspecified; F03.90 Unspecified dementia, unspecified severity, without behavioral disturbance, psychotic disturbance, mood disturbance, and anxiety; R62.7 Adult failure to thrive; K59.00 Constipation, unspecified; R16.0 Hepatomegaly, not elsewhere classified; R33.8 Other retention of urine; F32.A Depression, unspecified; M54.50 Low back pain, unspecified; B96.1 Klebsiella pneumoniae [K. pneumoniae] as the cause of diseases classified elsewhere
CPT/HCPCS: 0241U-QW; 36415; 70450-TC; 71045-TC-FY; 71250-TC; 74177-TC; 80053; 81003; 82550; 82784; 82962; 82977; 83605; 83735; 83880; 83883; 84100; 84155; 84165; 84484; 85025; 85027; 87077; 87086; 87186; 93005; 93010; 93306-TC; 99285-25; J0131; Q9967